=== PATIENT | male | born 1980 | race Caucasian/White ===

== ENCOUNTER 2025-10-23 03:45 | Emergency (ER) | payer OTHER ==
[~2025-10-23] VITALS: Ht 182.9 cm; Wt 72.3 kg
[2025-10-23 03:56] VITALS: BP 123/79; PULSE 76; RESP 16; TEMP 98; O2SAT 97
[2025-10-23] MEDS ORDERED: AMOX875T4 PO (04:00)
[2025-10-23] MEDS ORDERED: IBUP-1456 PO (04:00)
--- NOTE | 2025-10-23 04:00 | ED.PDOC ---
History of Present Illness(SKN HPI Comments 45-year-old male presents to ER with complaints of left index finger pain x1 week. Patient reports he has been experiencing pain/swelling and redness localized surrounding nailbed of left index finger x1 week. He rates his current pain a 8/10 to left index finger without radiation. States he's been taking ibuprofen for his pain without relief. Denies fever, body aches, chills, numbness/tingling, skin drainage or any further symptoms/complaints Chief Complaint: Upper Extremity Time Seen by MD: 03:54 Allergies: Coded Allergies: NO KNOWN ALLERGIES (Unverified , 10/23/25) Home Meds Active Scripts Ibuprofen (Ibuprofen) 800 Mg Tab, 1 TAB PO TID PRN, #30 TAB 0 Refills Prov:MICA GARCIA 10/23/25 Amoxicillin & Pot Clavulanate (Amoxicillin/Potassium Cla) 875 Mg Tab, 1 TAB PO BID for 7 Days, #14 TAB 0 Refills Prov:MICA GARCIA 10/23/25 Mode of Arrival: Ambulatory Past Medical History PAST MEDICAL HISTORY: Denies Surgical History: Denies all surgeries Family History Family History: Unknown Social History Smoker: Non-Smoker Alcohol: Denies ETOH Use Drugs: Denies Drug Use Lives In: Home Constitutional: denies: chills, diaphoresis, fatigue, fever, malaise, sweats, weakness, others EENTM: denies: blurred vision, double vision, ear bleeding, ear discharge, ear drainage, ear pain, ear ringing, eye pain, eye redness, hearing loss, mouth pain, mouth swelling, nasal discharge, nose bleeding, nose congestion, nose pain, photophobia, tearing, throat pain, throat swelling, voice changes, others Respiratory: denies: cough, hemoptysis, orthopnea, SOB at rest, shortness of breath, SOB with excertion, stridor, wheezing, others Cardiovascular: denies: chest pain, dizzy spells, diaphoresis, Dyspnea on exertion, edema, irregular heart beat, left arm pain, lightheadedness, palpitations, PND, syncope, others Gastrointestinal: denies: abdomen distended, abdominal pain, blood streaked bowels, constipated, diarrhea, dysphagia, difficulty swallowing, hematemesis, melena, nausea, poor appetite, poor fluid intake, rectal bleeding, rectal pain, vomiting, others Genitourinary: denies: burning, dysuria, flank pain, frequency, hematuria, i ncontinence, penile discharge, penile sore, pain, testicle pain, testicle swelling, urgency, others Neurological: denies: dizziness, fainting, headache, left sided numbness, left sided weakness, numbness, paresthesia, pre-existing deficit, right sided numbness, right sided weakness, seizure, speech problems, tingling, tremors, weakness, others Musculoskeletal: denies: back pain, gout, joint pain, joint swelling, muscle pain, muscle stiffness, neck pain, others Integumetry: reports: others (As stated in HPI) Allergic/Immunocompromised: denies: Difficulty Healing, Frequent Infections, Hives, Itching, others Hematologic/Lymphatic: denies: anemia, blood clots, easy bleeding, easy bruising, swollen glands, others Endocrine: denies: excessive hunger, excessive sweating, excessive thirst, excessive urination, flushing, intolerance to cold, intolerance to heat, unexp lained weight gain, unexplained weight loss, others Psychiatric: denies: anxiety, bipolar disorder, depression, hopeless, panic disorder, schizophrenia, sleepless, suicidal, others Physical Exam General Appearance: No Apparent Distress HEENT: PERRL/EOMI Neck: Full Range of Motion, Non-Tender, Normal Respiratory: Chest Non-Tender, Lungs Clear, No Accessory Muscle Use, No Respiratory Distress, Normal Breath Sounds Cardiovascular: No Murmur, No Gallop, Regular Rate/Rhythm Breast Exam: Deferred Gastrointestinal: NOT DONE Genitalia: Deferred Pelvic: Deferred Rectal: Deferred Extremities: Normal capillary refill, Normal range of motion Musculoskeletal : Extremity Location: Finger 2 (Mild swelling/TTP/erythema noted surrounding nailbed of left 2nd finger. No fluctuance/drainage/red streaking/foreign body/further skin changes noted. No bony tenderness noted. Patient able to fully move all fingers left hand. Pulses intact) Neurologic: Alert, No Motor Deficits, Normal Affect, Normal Mood, No Sensory Deficits Cerebellar Function: Normal Reflexes: Normal Skin: Dry, Warm Peripheral Pulses: 2+ Radial (R), 2+ Radial (L), 2+ Brachial (R), 2+ Brachial (L) Lymphatic: No Adenopathy Was a procedure done? Was a procedure done?: No Sedation Sedation?: No Differential Diagnosis (INTG) Differential Diagnosis: Abrasion Differential Diagnosis: Abscess Differential Diagnosis: Neurovascular Injury Differential Diagnosis: Puncture Wound, Retained Foreign Body, Other (fracture) X-Ray, Labs, Meds, VS Vital Signs Date Time Temp Pulse Resp B/P (MAP) Pulse Ox O2 Delivery O2 Flow Rate FiO2 10/23/25 03:56 98.0 76 16 123/79 (94) 97 98.0 10/23/25 03:47 98.0 76 16 123/79 97 98.0 Augmentin 875 mg p.o. ordered [place] 5/325 mg p.o. ordered Zofran 4 mg p.o. ordered Warm soaks and elevation discussed and advised Advised to follow up with PCP in 1-2 days Patient verbalized understanding and agreeable with current plan of care Advised to return to ER immediately if symptoms worsen Time of 1ST Reevaluation: 03:54 Reevaluation 1ST: N/A Patient Education/Counseling: Diagnosis, Treatment, Prognosis, Need For Follow Up Family Education/Counseling: No Family Present SEPSIS Sepsis Screen Date sepsis recognized/suspect: Oct 23, 2025 Time Sepsis recognized/suspect: 349 Recent Procedure: No On Antibiotic Therapy: No Respiratory Rate >20: No Heart Rate >90: No Temp<36 C (96.8 F) or >38.3 C: No SBP <90 or MAP <65 mmHG: No New Acute Mental Status Change: No Is the patient on CPAP, BIPAP,: No Physician Orders Hydrocodone-Acet 5/325mg Tab ([place] 5/32 (10/23/25 04:00) Ondansetron Po (Zofran Po) (10/23/25 04:00) Amoxicillin/Clavulanate Tablet (Augmenti (10/23/25 04:00) Vital Signs Date Time Temp Pulse Resp B/P (MAP) Pulse Ox O2 Delivery O2 Flow Rate FiO2 10/23/25 03:56 98.0 76 16 123/79 (94) 97 98.0 10/23/25 03:47 98.0 76 16 123/79 97 98.0 Departure 1 Departure Time of Disposition: 03:59 Impression: Primary Impression: Acute paronychia Disposition: 01 HOME / SELF CARE / HOMELESS Condition: Stable e-Prescriptions Ibuprofen (Ibuprofen) 800 Mg Tab 1 TAB PO TID PRN, #30 TAB 0 Refills Prov: FAVOT,MICA PA 10/23/25 Amoxicillin & Pot Clavulanate (Amoxicillin/Potassium Cla) 875 Mg Tab 1 TAB PO BID for 7 Days, #14 TAB 0 Refills Prov: MICA GARCIA 10/23/25 Discharged With: Friend Critical Care Note Critical Care Time?: No Stability Stability form required: No Heart Score Heart Score: Heart Score Response (Comments) Value History N/A 0 EKG N/A 0 Age N/A 0 Risk Factors N/A 0 Troponin N/A 0 Total 0 MICA GARCIA Oct 23, 2025 04:00
[2025-10-23] MEDS: HYDROcodone-ACET 5/325MG TAB PO ONE (04:07)
[2025-10-23] MEDS: ONDANSETRON ODT 4 MG TAB PO ONE (04:07)
== END 2025-10-23 04:13 | disposition home or self-care (01) ==
LOC: ER 03:45
DX: L03.012 Cellulitis of left finger (principal); Z79.899 Other long term (current) drug therapy
CPT/HCPCS: 99284; Q0162